=== PATIENT | female | born 1950 | race Caucasian/White ===

== ENCOUNTER → 2017-02-12 | Outpatient (CLI) | payer MEDICARE ==
[~2017-02-12] MED LIST: BENICAR HCT 12.1 TA4 PO; CIPRO500 MG PO; CRESTOR20 MG PO; LOSARTAN POTASS1 TA5 PO; SIMVASTATIN40 MG PO; SYNTHROID0.075 MG PO; VITAMIN D5000 I2 PO
== END | disposition home or self-care (01) ==
LOC: MAMMO 01:22
DX: Z12.31 Encounter for screening mammogram for malignant neoplasm of breast (principal)

== ENCOUNTER → 2017-03-28 | Outpatient (CLI) | payer MEDICARE | END | disposition home or self-care (01) | LOC: MAMMO 03:20 | DX: N63.20 Unspecified lump in the left breast, unspecified quadrant (principal) ==

== ENCOUNTER → 2017-04-01 | Day surgery (SDC) | payer MEDICARE | END | disposition home or self-care (01) | LOC: MAMMO 03-28 13:30 → SDC 03-28 13:30 | DX: C50.912 Malignant neoplasm of unspecified site of left female breast (principal) ==